=== PATIENT | male | born 1960 | race Two or more races ===

== ENCOUNTER → 2017-06-05 | Day surgery (SDC) | payer OTHER | END | disposition home or self-care (01) | LOC: ADM 06-02 15:15 → AMB-ENDOS 11:34 | DX: K92.1 Melena (principal); K64.1 Second degree hemorrhoids; Z12.11 Encounter for screening for malignant neoplasm of colon ==

== ENCOUNTER → 2017-11-16 | Outpatient (CLI) | payer OTHER | END | disposition home or self-care (01) | LOC: TOM 12:24 | DX: N20.1 Calculus of ureter (principal) ==